=== PATIENT | male | born 1980 | race Caucasian/White ===

== ENCOUNTER → 2017-10-20 | Outpatient (CLI) | payer OTHER | END | disposition home or self-care (01) | LOC: KCIC 10:12 | DX: S22.069A Unspecified fracture of T7-T8 vertebra, initial encounter for closed fracture (principal); S29.9XXA Unspecified injury of thorax, initial encounter; M54.5 Low back pain; M54.2 Cervicalgia; R20.0 Anesthesia of skin; X58.XXXA Exposure to other specified factors, initial encounter; Y93.89 Activity, other specified; Y92.89 Other specified places as the place of occurrence of the external cause; Y99.8 Other external cause status | CPT/HCPCS: 72050; 72072; 72100 ==